=== PATIENT | female | born 1955 | race Caucasian/White ===

== ENCOUNTER 2021-05-18 14:41 | Emergency (ER) | payer MEDICARE ==
[~2021-05-18] VITALS: Ht 170.2 cm; Wt 172.5 kg
--- NOTE | 2021-05-18 15:29 | RAD ---
CT head without contrast: Reason for examination: Fell today with dizziness. Helical images were obtained through the brain with no contrast administered. Exposure: One or more of the following individualized dose reduction techniques were utilized for thi s examination: 1. Automated exposure control 2. Adjustment of the mA and/or kV according to patient size 3. Use of iterative reconstruction technique. Ventricular systems are symmetric and not dilated. No midline shift is seen. There is no evidence of intracranial hemorrhage, infarct, mass or edema. These are seen at the orbits. The paranasal sinuses and mastoid air cells are clear. No acute abnormality seen in the skull. IMPRESSION: No acute intracranial abnormality. Electronically signed by: Kandy Babb MD (05/18/2021 3:27 PM) [facility]
--- NOTE | 2021-05-18 15:29 | EKG ---
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
--- NOTE | 2021-05-18 15:35 | PHYS DOC ---
Past History Past Surgical History: Other (MANA GALVAN) General Adult EDM: Chief Complaint: MECHANICAL FALL HPI: HPI: Patient is a 65 year old female who presents from retirement via EMS with head laceration and right arm contusion. Patient states that she was going to sit in her wheelchair, when she is got dizzy suddenly. She states she missed the chair and extended her arm to catch her fall. She reports she did hit her head on the linoleum floor, where she sustained her laceration. Patient states "I am a Zeinab," and has fallen about 3 times a month for the past 6 months. Patient denies headache, loss of consciousness, blurred vision, double vision, or loss of vision. Patient reports she is incontinent. Patient has no other complaints at this time. (MANA GALVAN) Review of Systems: Review of Systems: Constitutional: Denies fever or chills Eyes: See HPI HENT: Denies nasal congestion or sore throat Respiratory: Denies cough or shortness of breath Cardiovascular: Denies chest pain or edema GI: Denies abdominal pain, nausea, vomiting, bloody stools or diarrhea : Denies dysuria or hematuria Musculoskeletal: Denies back pain or joint pain Integument: See HPI Neurologic: Denies headache, focal weakness or sensory changes (MANA GALVAN) Allergies: Allergies: Allergies Coded Allergies Type Severity Reaction Last Updated Verified Milk Containing Products Allergy Unknown 05/18/21 Yes meperidine Allergy Unknown 05/18/21 Yes (MANA GALVAN) Physical Exam: PE: Constitutional: Patient resting comfortably in bed with oxygen via nasal cannula. Well developed, well nourished, no acute distress, non-toxic appearance. HENT: Normocephalic, laceration as noted below, bilateral external ears normal, oropharynx moist, no oral exudates, missing dentition without infection, nose normal. Eyes: PERRLA, EOMI, conjunctiva normal, no discharge. Neck: Normal range of motion, no step-offs, no bony tenderness, supple, no st ridor. Cardiovascular: Heart rate regular rhythm, no murmur. Lungs & Thorax: Bilateral breath sounds clear to auscultation. Abdomen: Bowel sounds normal, soft, no tenderness, no masses, no pulsatile masses. Skin: 4 cm laceration noted to left supraorbital ridge in the eyebrow. Otherwise skin is warm, dry, no erythema, no rash. Back: No step-offs, no bony tenderness, no CVA tenderness. Extremities: Minimal tenderness to a dorsal side distal right upper extremity contusion with hematoma. Extremities otherwise no tenderness, no cyanosis, no clubbing, ROM intact, no edema. Neurovascular intact x4. Neurologic: Alert and oriented x3, normal motor function, normal sensory function, no focal deficits noted. (MANA GALVAN) Current Patient Data: Labs: Laboratory Tests Test 05/18/21 15:46 05/18/21 17:12 White Blood Count 7.9 x10^3/uL (4.0-11.0) Red Blood Count 3.64 x10^6/uL (3.50-5.40) Hemoglobin 10.8 g/dL (12.0-15.5) Hematocrit 34.4 % (36.0-47.0) Mean Corpuscular Volume 95 fL (79-100) Mean Corpuscular Hemoglobin 30 pg (25-35) Mean Corpuscular Hemoglobin Concent 31 g/dL (31-37) Red Cell Distribution Width 13.3 % (11.5-14.5) Platelet Count 244 x10^3/uL (140-400) Neutrophils (%) (Auto) 63 % (31-73) Lymphocytes (%) (Auto) 19 % (24-48) Monocytes (%) (Auto) 12 % (0-9) Eosinophils (%) (Auto) 5 % (0-3) Basophils (%) (Auto) 1 % (0-3) Neutrophils # (Auto) 4.9 x10^3uL (1.8-7.7) Lymphocytes # (Auto) 1.5 x10^3/uL (1.0-4.8) Monocytes # (Auto) 0.9 x10^3/uL (0.0-1.1) Eosinophils # (Auto) 0.4 x10^3/uL (0.0-0.7) Basophils # (Auto) 0.1 x10^3/uL (0.0-0.2) Sodium Level 145 mmol/L (136-145) Potassium Level 3.6 mmol/L (3.5-5.1) Chloride Level 101 mmol/L (98-107) Carbon Dioxide Level 44 mmol/L (21-32) Anion Gap 0 (6-14) Blood Urea Nitrogen 18 mg/dL (7-20) Creatinine 0.8 mg/dL (0.6-1.0) Estimated GFR (Cockcroft-Gault) 71.5 Glucose Level 108 mg/dL (70-99) Calcium Level 8.9 mg/dL (8.5-10.1) Urine Collection Type Unknown Urine Color Yellow Urine Clarity Clear Urine pH 7.5 Urine Specific [place] 1.025 Urine Protein Neg (NEG-TRACE) Urine Glucose (UA) Neg mg/dL (NEG) Urine Ketones (Stick) Neg mg/dL (NEG) Urine Blood Neg (NEG) Urine Nitrite Neg (NEG) Urine Bilirubin Neg (NEG) Urine Urobilinogen Dipstick 0.2 mg/dL (0.2 mg/dL) Urine Leukocyte Esterase Neg (NEG) Urine RBC 0 /HPF (0-2) Urine WBC 0 /HPF (0-4) Urine Squamous Epithelial Cells None /LPF Urine Bacteria 0 /HPF (0-FEW) Vital Signs: Vital Signs Date Time Temp Pulse Resp B/P (MAP) Pulse Ox O2 Delivery O2 Flow Rate FiO2 05/18/21 15:00 97.2 79 16 126/52 (76) 97 4.0 (MANA GALVAN) EKG: EKG: EKG Interpreted by Dr. Collins: Regular rate 77bpm and rhythm with no ectopic beats. No concerning ST-T wave changes. Regular QR interval. (MANA GALVAN) Radiology/Procedures: Radiology/Procedures: PROCEDURE: CT HEAD WO CONTRAST CT head without contrast: Reason for examination: Fell today with dizziness. Helical images were obtained through the brain with no contrast administered. Exposure: One or more of the following individualized dose reduction techniques were utilized for this examination: 1. Automated exposure control 2. Adjustment of the mA and/or kV according to patient size 3. Use of iterative reconstruction technique. Ventricular systems are symmetric and not dilated. No midline shift is seen. There is no evidence of intracranial hemorrhage, infarct, mass or edema. These are seen at the orbits. The paranasal sinuses and mastoid air cells are clear. No acute abnormality seen in the skull. IMPRESSION: No acute intracranial abnormality. Electronically signed by: Kandy Babb MD (05/18/2021 3:27 PM) [facility] (MANA GAL[facility]AN) Heart Score: C/O Chest Pain: No (MANA GALVAN) Course & Med Decision Making: Course & Med Decision Making Pertinent Labs and Imaging studies reviewed. (See chart for details) EMS originally reported patient's fall is mechanical fall, however on interview patient states that she did feel suddenly lightheaded before she fell. Work-up today will include EKG to exclude heart blocks as well as head CT, urinalysis and blood work. Blood work, CT and EKG are reassuring. I will wait for UA to ensure patient does not have underlying UTI. (MANA GALVAN) Dragon Disclaimer: Dragon Disclaimer: This electronic medical record was generated, in whole or in part, using a voice recognition dictation system. (MANA GALVAN) Laceration Repair Lac Repair Indication: Laceration to right supraorbital ridge Procedure: The patient was placed in the appropriate position and anesthesia around the 4 mL 2% lidocaine with epinephrine. The area was then cleansed with Betadine solution. The laceration was closed with seven 6-0 nylon sutures. The wound area was then dressed with Steri-Strip. Total repaired wound length: 4 cm. Other Items: The patient tolerated the procedure very well. Complications: There were no complications. (MANA GALVAN) Attending Co-Sign The patient was seen and interviewed as well as examined at the bedside. The chart was reviewed. The case was discussed. Agree with the plan of care. (MAKI COLLINS DO) Departure Departure: Impression: Primary Impression: Laceration of eyebrow, left Qualified Codes: S01.112A - Laceration without foreign body of left eyelid and periocular area, initial encounter Additional Impression: Contusion of right arm Qualified Codes: S40.021A - Contusion of right upper arm, initial encounter Disposition: HOME / SELF CARE / HOMELESS Condition: STABLE Referrals: PCP,NO (PCP) Patient Instructions: Contusion, [id number], Facial Laceration, [id number] Additional Instructions: EMERGENCY DEPARTMENT GENERAL DISCHARGE INSTRUCTIONS Thank you for coming to [facility] (ED) today and trusting us with you care. We trust that you had a positive experience in our Emergency Department. If you wish to speak to the department management, you may call the director at [phone]. YOUR FOLLOW UP INSTRUCTIONS ARE FOLLOWS: 1. Do you have a private Doctor? If you do not have a private doctor, please ask for a resource list of physicians or clinics that may be able to assist you with follow up care. 2. The Emergency Physician has interpreted your imaging studies. The coverage specialist will also review them. If there is a change in the findings, you will be notified in 48 hours when at all possible. 3. A lab test or culture has been done, your results will be reviewed and you will be notified if you need a change in treatment. ADDITIONAL INSTRUCTIONS AND INFORMATION: 1. Your care today has been supervised by a physician who is specially trained in emergency care. Many problems require more than one evaluation for a complete diagnosis and treatment. We recommend that you schedule your follow up appointment as recommended to ensure complete treatment of you illness or injury. If you are unable to obtain follow up care and continue to have a problem, or if your condition worsens, we recommend that you return to the ED. 2. We are not able to safely determine your condition over the phone nor are we able to give sound medical advice over the phone. For these safety reasons, if you call for medical advice we will ask you to come to the ED for further evaluation. 3. If you have any questions regarding these discharge instructions please call the ED at [phone]. SAFETY INFORMATION: In the interest of safety, wellness, and injury prevention; we encourage you to wear your sealbelt, if you smoke; quite smoking, and we encourage family to use a protective helmet for bicycling and other sporting events that present an increased risk for head injury. IF YOUR SYMPTOMS WORSEN OR NEW SYMPTOMS DEVELOP, OR YOU HAVE CONCERNS ABOUT YOUR CONDITION; OR IF YOUR CONDITION WORSENS WHILE YOU ARE WAITING FOR YOUR FOLLOW UP APPOINTMENT; EITHER CONTACT YOUR PRIMARY CARE DOCTOR, THE PHYSICIAN WHOSE NAME AND NUMBER YOU WERE GIVEN, OR RETURN TO THE ED IMMEDIATELY. MAAN GALVAN May 18, 2021 15:35 MAKI COLLINS DO May 20, 2021 06:15
[2021-05-18] MEDS ORDERED: LIDOCAINE 2%/EPI 1:100,000 20 ML VIAL. IJ ONE (16:00)
[2021-05-18 16:08] LABS: BASO # 0.1 x10^3/uL (0.0-0.2); BASO % 1 % (0-3); EOS # 0.4 x10^3/uL (0.0-0.7); EOS % 5 % (0-3); HEMATOCRIT 34.4 % (36.0-47.0); HEMOGLOBIN 10.8 g/dL (12.0-15.5); LYMPH # 1.5 x10^3/uL (1.0-4.8); LYMPH % 19 % (24-48); MEAN CORPUSCULAR HEMOGLOBIN 30 pg (25-35); MEAN CORPUSCULAR HGB CONC 31 g/dL (31-37); MEAN CORPUSCULAR VOLUME 95 fL (79-100); MONO # 0.9 x10^3/uL (0.0-1.1); MONO % 12 % (0-9); NEUT # 4.9 x10^3uL (1.8-7.7); NEUT % 63 % (31-73); PLATELET COUNT 244 x10^3/uL (140-400); RED BLOOD COUNT 3.64 x10^6/uL (3.50-5.40); RED CELL DISTRIBUTION WIDTH 13.3 % (11.5-14.5); WHITE BLOOD COUNT 7.9 x10^3/uL (4.0-11.0)
[2021-05-18 16:17] LABS: CALCIUM 8.9 mg/dL (8.5-10.1); CREATININE 0.8 mg/dL (0.6-1.0); GFR 71.5; POTASSIUM 3.6 mmol/L (3.5-5.1)
[2021-05-18 18:49] LABS: BACTERIA,URINE 0 /HPF (0-FEW); BILIRUBIN,URINE NEG (NEG); CLARITY,URINE CLEAR; COLOR,URINE YELLOW; GLUCOSE,URINE NEG (NEG); NITRITE,URINE NEG (NEG); RBC,URINE 0 /HPF (0-2); UROBILINOGEN,URINE 0.2 mg/dL (0.2 mg/dL); WBC,URINE 0 /HPF (0-4)
[2021-05-18 19:40] VITALS: BP 127/74
== END 2021-05-18 19:40 | disposition home or self-care (01) ==
LOC: ER 14:41
DX: S01.112A Laceration without foreign body of left eyelid and periocular area, initial encounter (principal); S40.021A Contusion of right upper arm, initial encounter; Z91.011 Allergy to milk products; Z88.8 Allergy status to other drugs, medicaments and biological substances; W18.09XA Striking against other object with subsequent fall, initial encounter; Y93.89 Activity, other specified; Y92.89 Other specified places as the place of occurrence of the external cause; Y99.8 Other external cause status
CPT/HCPCS: 12013; 36415; 70450; 80048; 81001; 85025; 93005; 99285-25